=== PATIENT | female | born 1975 | race Two or more races ===

== ENCOUNTER 2020-04-29 08:37 | Emergency (ER) | payer OTHER ==
[~2020-04-29] VITALS: Ht 154.9 cm; Wt 75.4 kg
--- NOTE | 2020-04-29 09:06 | PHYS DOC ---
Past History Past Medical History: Hypertension Past Surgical History: Appendectomy, Knee Replacement Alcohol Use: None General Adult EDM: Chief Complaint: Palpitations HPI: HPI: 45-year-old female presents with palpitations. Patient has been having intermittent palpitations for about the last 1 week. She has had them very occasionally before that. She states that it feels like her heart takes off it starts racing. She is not sure how long each episode lasts. Sometimes just few seconds sometimes it is longer. Today even shifting around getting out of bed and doing low exertion things seems to make her heart rate go faster. She decided she should just come in for evaluation. She denies any chest pain, shortness of breath, diaphoresis. She has had no disruption of her normal activities. She has been able to exercise. She denies fever or chills. Review of Systems: Review of Systems: Constitutional: Denies fever or chills Eyes: Denies change in visual acuity HENT: Denies nasal congestion or sore throat Respiratory: Denies cough or shortness of breath Cardiovascular: Denies chest pain or edema. Palpitations GI: Denies abdominal pain, nausea, vomiting, bloody stools or diarrhea : Denies dysuria Musculoskeletal: Denies back pain or joint pain Integument: Denies rash Neurologic: Denies headache, focal weakness or sensory changes Endocrine: Denies polyuria or polydipsia Lymphatic: Denies swollen glands Psychiatric: Denies depression or anxiety Allergies: Allergies: Allergies Coded Allergies Type Severity Reaction Last Updated Verified No Known Drug Allergies 04/29/20 No Physical Exam: PE: Constitutional: Well developed, well nourished, obese, no acute distress, non- toxic appearance. [] HENT: Normocephalic, atraumatic, bilateral external ears normal, oropharynx moist, no oral exudates, nose normal. [] Eyes: PERRLA, EOMI, conjunctiva normal, no discharge. [] Neck: Normal range of motion, no tenderness, supple, no stridor. [] Cardiovascular: Heart rate 89, regular rhythm, no murmur [] Lungs & Thorax: Bilateral breath sounds clear to auscultation [] Abdomen: Bowel sounds normal, soft, no tenderness, no masses, no pulsatile masses. [] Skin: Warm, dry, no erythema, no rash. [] Back: No tenderness, no CVA tenderness. [] Extremities: No tenderness, no cyanosis, no clubbing, ROM intact, no edema. [] Neurologic: Alert and oriented X 3, normal motor function, normal sensory function, no focal deficits noted. [] Psychologic: Affect normal, judgement normal, mood normal. [] Current Patient Data: Vital Signs: Vital Signs Date Time Temp Pulse Resp B/P (MAP) Pulse Ox O2 Delivery O2 Flow Rate FiO2 04/29/20 08:41 97.6 82 16 141/77 (98) 98 Room Air EKG: EKG: Sinus rhythm, rate 89, no axis, no ST elevations or depressions. [] Radiology/Procedures: Radiology/Procedures: [] Impressions: EXAM: AP View of the chest DATE: 04/29/2020 9:37 AM INDICATION: Palpitations COMPARISON: No Prior FINDINGS: lThe heart is not enlarged. Mediastinal and hilar contours are normal. No focal parenchymal airspace opacity. No pleural effusion or pneumothorax. IMPRESSION: 1. No radiographic evidence for acute cardiopulmonary process. Electronically signed by: Tee Franco MD (04/29/2020 9:54 AM) [facility] DICTATED AND SIGNED BY: TEE FRANCO MD DATE: 04/29/20 0954 CC: LEILANI BAPTISTE DO; HOUSTON HEIN DO ~ Heart Score: Risk Factors: Risk Factors: DM, Current or recent (<one month) smoker, HTN, HLP, family history of CAD, obesity. Risk Scores: Score 0 - 3: 2.5% MACE over next 6 weeks - Discharge Home Score 4 - 6: 20.3% MACE over next 6 weeks - Admit for Clinical Observation Score 7 - 10: 72.7% MACE over next 6 weeks - Early Invasive Strategies Course & Med Decision Making: Course & Med Decision Making Pertinent Labs and Imaging studies reviewed. (See chart for details) The patient's EKG is unremarkable. Her labs are unremarkable. Her chest x-ray is negative for acute findings. We have not recorded any aberrations on heart monitor. I advised that she follow-up with her primary physician and consider an event monitor. She is stable for discharge at this time. [] Dragon Disclaimer: Dragon Disclaimer: This electronic medical record was generated, in whole or in part, using a voice recognition dictation system. Departure Departure: Impression: Primary Impression: Palpitations Disposition: 01 DC HOME SELF CARE/HOMELESS Condition: STABLE Referrals: LEILANI BAPTISTE DO (PCP) Patient Instructions: Palpitations, Oand-dr-Bvai HOUSTON HEIN DO Apr 29, 2020 09:06
[2020-04-29 09:30] LABS: BASO % 1 % (0-3); EOS % 1 % (0-3); HEMATOCRIT 41.1 % (36.0-47.0); HEMOGLOBIN 13.6 g/dL (12.0-15.5); LYMPH # 1.4 x10^3/uL (1.0-4.8); LYMPH % 26 % (24-48); MEAN CORPUSCULAR HEMOGLOBIN 30 pg (25-35); MEAN CORPUSCULAR HGB CONC 33 g/dL (31-37); MEAN CORPUSCULAR VOLUME 90 fL (79-100); MONO # 0.2 x10^3/uL (0.0-1.1); MONO % 5 % (0-9); NEUT # 3.7 x10^3uL (1.8-7.7); NEUT % 69 % (31-73); PLATELET COUNT 256 x10^3/uL (140-400); RED BLOOD COUNT 4.57 x10^6/uL (3.50-5.40); RED CELL DISTRIBUTION WIDTH 12.9 % (11.5-14.5); WHITE BLOOD COUNT 5.4 x10^3/uL (4.0-11.0)
[2020-04-29 09:32] LABS: CALCIUM 9.9 mg/dL (8.5-10.1); CREATININE 1.1 mg/dL (0.6-1.0); POTASSIUM 3.6 mmol/L (3.5-5.1)
[2020-04-29 09:40] LABS: ALBUMIN 4.1 g/dL (3.4-5.0); ALBUMIN/GLOBULIN RATIO 1.2 (1.0-1.7); TOTAL BILIRUBIN 0.3 mg/dL (0.2-1.0); TOTAL PROTEIN 7.4 g/dL (6.4-8.2)
--- NOTE | 2020-04-29 09:57 | RAD ---
EXAM: AP View of the chest DATE: 04/29/2020 9:37 AM INDICATION: Palpitations COMPARISON: No Prior FINDINGS: lThe heart is not enlarged. Mediastinal and hilar contours are normal. No focal parenchymal airspace opacity. No pleural effusion or pneumothorax. IMPRESSION: 1. No radiographic evidence for acute cardiopulmonary process. Electronically signed by: Tee Franco MD (04/29/2020 9:54 AM) SHAKIR
[2020-04-29 10:15] VITALS: BP 122/74
--- NOTE | 2020-04-29 12:00 | EKG ---
[address] [address] Test Date: 2020-04-29 Test Time: 08:46:48 Pat Name: LANEY HERNANDEZ Department: Room: Gender: F Research Laboratory Technician: LINSEY : 1975 Requested By: HOUSTON HEIN Order Number: [id number] Reading MD: Measurements Intervals Leroy Rate: 89 P: 63 AK: 150 QRS: 59 QRSD: 96 T: 38 QT: 350 QTc: 427 Interpretive Statements SINUS RHYTHM INCOMPLETE RIGHT BUNDLE BRANCH BLOCK OTHERWISE NORMAL ECG RI6.02 No previous ECG available for comparison
== END 2020-04-29 10:23 | disposition home or self-care (01) ==
LOC: ER 08:37
DX: R00.2 Palpitations (principal); I10 Essential (primary) hypertension
CPT/HCPCS: 36415; 71045; 80053; 84484; 85025; 93005; 99285

== ENCOUNTER 2020-10-05 17:22 | Emergency (ER) | payer OTHER ==
[~2020-10-05] VITALS: Ht 154.9 cm; Wt 72.2 kg
--- NOTE | 2020-10-05 17:48 | PHYS DOC ---
Past History Past Medical History: Hypertension (ALISIA TAYLOR APRN) Past Surgical History: Appendectomy, Knee Replacement (ALISIA TAYLOR APRN) Alcohol Use: None (ALISIA TAYLOR APRN) General Adult EDM: Chief Complaint: LOWER EXT PAIN HPI: HPI: Patient is a 45-year-old female who presents with right lower calf pain. Patilenore loza states she has also had tingling in her bilateral legs. She called her PCP today who wanted her to be seen in the emergency room for a sonogram to rule out a DVT. Patient denies taking anything at home for discomfort. Patient states that her leg hurts worse while she is standing and improves with sitting. Denies shortness of breath or chest pain. Patient has history of hypertension. (ALISIA TAYLOR APRN) Review of Systems: Review of Systems: Constitutional: Denies fever or chills Eyes: Denies change in visual acuity HENT: Denies nasal congestion or sore throat Respiratory: Denies cough or shortness of breath Cardiovascular: Denies chest pain or edema GI: Denies abdominal pain, nausea, vomiting, bloody stools or diarrhea : Denies dysuria Musculoskeletal: Reports right lower leg pain Integument: Denies edema Neurologic: Denies headache, focal weakness or sensory changes Endocrine: Denies polyuria or polydipsia Lymphatic: Denies swollen glands Psychiatric: Denies depression or anxiety (ALISIA TAYLOR APRN) Allergies: Allergies: Allergies Coded Allergies Type Severity Reaction Last Updated Verified No Known Drug Allergies 04/29/20 No (ALISIA TAYLOR APRN) Physical Exam: PE: Constitutional: Well developed, well nourished, no acute distress, non-toxic appearance. [] HENT: Normocephalic, atraumatic, bilateral external ears normal, oropharynx moist, no oral exudates, nose normal. [] Eyes: PERRLA, EOMI, conjunctiva normal, no discharge. [] Neck: Normal range of motion, no tenderness, supple, no stridor. [] Cardiovascular:Heart rate regular rhythm, no murmur [] Lungs & Thorax: Bilateral breath sounds clear to auscultation [] Abdomen: Bowel sounds normal, soft, no tenderness, no masses, no pulsatile masses. [] Skin: Warm, dry, no erythema, no rash. [] Back: No tenderness, no CVA tenderness. [] Extremities: Right lower calf tenderness, no cyanosis, no clubbing, ROM intact, no edema. [] Neurologic: Alert and oriented X 3, normal motor function, normal sensory function, no focal deficits noted. [] Psychologic: Affect normal, judgement normal, mood normal. [] (ALISIA TAYLOR APRN) EKG: EKG: [] (ALISIA TAYLOR APRN) Radiology/Procedures: Radiology/Procedures: [] (ALISIA TAYLOR APRN) Heart Score: C/O Chest Pain: No Risk Factors: Risk Factors: DM, Current or recent (<one month) smoker, HTN, HLP, family history of CAD, obesity. Risk Scores: Score 0 - 3: 2.5% MACE over next 6 weeks - Discharge Home Score 4 - 6: 20.3% MACE over next 6 weeks - Admit for Clinical Observation Score 7 - 10: 72.7% MACE over next 6 weeks - Early Invasive Strategies (ALISIA TAYLOR APRN) Course & Med Decision Making: Course & Med Decision Making Pertinent Labs and Imaging studies reviewed. (See chart for details) []Patient is a 45-year-old female who presents with right lower calf pain. Patient states she has also had tingling in her bilateral legs. She called her PCP today who wanted her to be seen in the emergency room for a sonogram to rule out a DVT. Patient states that her leg hurts worse while she is standing and improves with sitting. No swelling noted. Pedal pulses intact. Denies shortness of breath or chest pain. Patient able to ambulate on her own. Ultrasound ordered of right lower leg to rule out DVT. Ultrasounds negative for DVT. Patient is to follow-up with her PCP next week for further management. Patient was likely has some type of nerve or vascular issue and needs to follow- up with PCP. Patient is okay with this plan. Patient is hemodynamically stable. Patient is able to ambulate on her own. (ALISIA TAYLOR APRN) Course & Med Decision Making Did not see or evaluate patient. Agree with BACK HOE OPERATOR's work-up and disposition per note. (BEN DIAZ MD) Dragon Disclaimer: Dragon Disclaimer: This electronic medical record was generated, in whole or in part, using a voice recognition dictation system. (ALISIA TAYLOR APRN) Departure Departure: Impression: Primary Impression: Leg pain, right Disposition: HOME / SELF CARE / HOMELESS Condition: STABLE Referrals: FRANCES KOWALSKI (PCP) Patient Instructions: Leg Cramps Additional Instructions: You were seen in the emergency room for right lower extremity calf pain. Ultrasound was negative for DVT. Please follow-up with your PCP for further management. Please return to emergency room with worsening symptoms or concerns. EMERGENCY DEPARTMENT GENERAL DISCHARGE INSTRUCTIONS Thank you for coming to [facility] (ED) today and trusting us with you care. We trust that you had a positivie experience in our Emergency Department. If you wish to speak to the department management, you may call the director at [phone]. YOUR FOLLOW UP INSTRUCTIONS ARE FOLLOWS: 1. Do you have a private Doctor? If you do not have a private doctor, please ask for a resource list of physicians or clinics that may be able to assist you with follow up care. 2. The Emergency Physician has interpreted your x-rays. The X-Ray specialist will also review them. If there is a change in the findings, you will be notified in 48 hours when at all possible. 3. A lab test or culture has been done, your results will be reviewed and you will be notified if you need a change in treatment. ADDITIONAL INSTRUCTIONS AND INFORMATION: 1. Your care today has been supervised by a physician who is specially trained in emergency care. Many problems require more than one evaluation for a complete diagnosis and treatment. We recommend that you schedule your follow up appointment as recommended to ensure complete treatment of you illness or injury. If you are unable to obtain follow up care and continue to have a problem, or if your condition worsens, we recommend that you return to the ED. 2. We are not able to safely determine your condition over the phone nor are we able to give sound medical advice over the phone. For these safety reasons, if you call for medical advice we will ask you to come to the ED for further evaluation. 3. If you have any questions regarding these discharge instructions please call the ED at [phone]. SAFETY INFORMATION: In the interest of safety, wellness, and injury prevention; we encourage you to wear your sealbelt, if you smoke; quite smoking, and we encourage family to use a protective helmet for bicycling and other sporting events that present an increased risk for head injury. IF YOUR SYMPTOMS WORSEN OR NEW SYMPTOMS DEVELOP, OR YOU HAVE CONCERNS ABOUT YOUR CONDITION; OR IF YOUR CONDITION WORSENS WHILE YOU ARE WAITING FOR YOUR FOLLOW UP APPOINTMENT; EITHER CONTACT YOUR PRIMARY CARE DOCTOR, THE PHYSICIAN WHOSE NAME AND NUMBER YOU WERE GIVEN, OR RETURN TO THE ED IMMEDIATELY. ALISIA TAYLOR APRN Oct 05, 2020 17:48 BEN DIAZ MD Oct 05, 2020 20:18
--- NOTE | 2020-10-05 18:16 | RAD ---
Examination: Right Lower Extremity Venous Doppler Ultrasound History: Right calf pain Comparison: None Procedure: Lyon scale, color flow 2D and spectal waveform analysis images are obtained with and witho ut compression in the area of the common femoral vein, superficial femoral vein - femoral vein juncti on, main femoral vein (superficial femoral vein) and popliteal vein. Veins of the proximal calf are a lso imaged. Findings: There is normal duplex flow, color flow and compressibility of all visualized vein segments. No evide nce of deep venous thrombus is present. Impression: No evidence of DVT in the right lower extremity venous system. Electronically signed by: Gage Dumont MD (10/05/2020 6:13 PM) [id number]
[2020-10-05 19:15] VITALS: BP 154/79
== END 2020-10-05 19:16 | disposition home or self-care (01) ==
LOC: ER 17:22
DX: M79.661 Pain in right lower leg (principal); I10 Essential (primary) hypertension
CPT/HCPCS: 93971; 99284-25

== ENCOUNTER 2021-07-02 19:47 | Emergency (ER) | payer OTHER ==
[~2021-07-02] VITALS: Ht 154.9 cm; Wt 72.2 kg
[2021-07-03 00:42] VITALS: BP 152/81
--- NOTE | 2021-07-03 01:39 | PHYS DOC ---
Past History Past Medical History: Hypertension Past Surgical History: Appendectomy, Knee Replacement Alcohol Use: None General Adult EDM: Chief Complaint: HEADACHE HPI: HPI: ".. I had a headache.. just feel under the weather... " "I feel better now..." Patient is a 46 year old female who presents with above hx and complaints malaise, arthralgia, myalgia, subjective fevers and headache. Currently without headache. No recent travel. No specific ill contacts. Did get COVID vaccination but did not get flu vaccination. No history immunosuppression. No current fevers. Patient denies any trauma. Patient denies any contact with ill animals. Review of Systems: Review of Systems: Constitutional: Denies fever or chills Eyes: Denies change in visual acuity HENT: Denies nasal congestion or sore throat Respiratory: Denies cough or shortness of breath Cardiovascular: Denies chest pain or edema GI: Denies abdominal pain, nausea, vomiting, bloody stools or diarrhea : Denies dysuria Musculoskeletal: Complains of myalgia and arthralgia Integument: Denies rash Neurologic: Complains of headache,. Denies focal weakness or sensory changes Endocrine: Denies polyuria or polydipsia Lymphatic: Denies swollen glands Psychiatric: Denies depression or anxiety Family History: Family History: Noncontributory presentation Current Medications: Current Meds: See nursing for home meds Allergies: Allergies: Allergies Coded Allergies Type Severity Reaction Last Updated Verified No Known Drug Allergies 04/29/20 No Physical Exam: PE: Constitutional: Moderate acute distress, non-toxic appearance. [] HENT: Normocephalic, atraumatic, bilateral external ears normal, oropharynx moist, no oral exudates, nose slightly swollen turbinates and clear rhinorrhea. Eyes: PERRLA, EOMI, conjunctiva normal, no discharge. [] Neck: Normal range of motion, no tenderness, supple, no stridor. [] Cardiovascular:Heart rate regular rhythm, no murmur [] Lungs & Thorax: Bilateral breath sounds clear to auscultation [] Abdomen: Bowel sounds normal, soft, no tenderness, no masses, no pulsatile masses. [] Skin: Warm, dry, no erythema, no rash. [] Back: No tenderness, no CVA tenderness. [] Extremities: No tenderness, no cyanosis, no clubbing, ROM intact, no edema. [] Neurologic: Alert and oriented X 3, normal motor function, normal sensory function, no focal deficits noted. [] DTRs +2 patella and brachial. Mobile Phlebotomist equal. [id number]. Ambulatory without problems. Psychologic: Affect anxious, judgement normal, mood normal. [] Current Patient Data: Vital Signs: Vital Signs Date Time Temp Pulse Resp B/P (MAP) Pulse Ox O2 Delivery O2 Flow Rate FiO2 07/03/21 00:42 98.1 77 16 152/81 (104) 97 EKG: EKG: [] Radiology/Procedures: Radiology/Procedures: CT head deferred at this time. [] Heart Score: C/O Chest Pain: N/A Risk Factors: Risk Factors: DM, Current or recent (<one month) smoker, HTN, HLP, family history of CAD, obesity. Risk Scores: Score 0 - 3: 2.5% MACE over next 6 weeks - Discharge Home Score 4 - 6: 20.3% MACE over next 6 weeks - Admit for Clinical Observation Score 7 - 10: 72.7% MACE over next 6 weeks - Early Invasive Strategies Course & Med Decision Making: Course & Med Decision Making Pertinent Labs and Imaging studies reviewed. (See chart for details) With self isolate for the next 5 days. Follow-up primary care. Follow-up COVID testing in 5 days. Take Tylenol and ibuprofen as needed for discomfort. Return if any concerns. Impression: 1. Viral syndrome 2. Headache [] Dragon Disclaimer: Dragon Disclaimer: This electronic medical record was generated, in whole or in part, using a voice recognition dictation system. Departure Departure: Referrals: FRANCES KOWALSKI-BC (PCP) Adri Disclaimer This chart was dictated in whole or in part using Voice Recognition software in a busy, high-work load, and often noisy Emergency Department environment. It may contain unintended and wholly unrecognized errors or omissions. Dragon Disclaimer This chart was dictated in whole or in part using Voice Recognition software in a busy, high-work load, and often noisy Emergency Department environment. It may contain unintended and wholly unrecognized errors or omissions. TIM RAVI MD Jul 03, 2021 01:39
[2021-07-03] MEDS ORDERED: oxyCODONE/APAP 5/325 1 TAB TABLET PO ONE (02:30)
[2021-07-03] MEDS ORDERED: ONDANSETRON ODT 4 MG TAB.RAPDIS PO ONE (02:30)
[2021-07-03 02:51] LABS: INFLUENZA A PATIENT NEGATIVE (NEGATIVE); INFLUENZA B PATIENT NEGATIVE (NEGATIVE)
== END 2021-07-03 03:43 | disposition home or self-care (01) ==
LOC: ER 19:47
DX: B34.9 Viral infection, unspecified (principal); R51.9 Headache, unspecified; I10 Essential (primary) hypertension; Z20.822 Contact with and (suspected) exposure to COVID-19
CPT/HCPCS: 87428; 99283; Q0162